=== PATIENT | female | born 1980 | race Asian ===

== ENCOUNTER 2016-12-14 12:04 | Emergency (ER) | payer OTHER ==
--- NOTE | 2016-12-14 13:03 | EDPHY ---
H & P Stated Complaint: chiropractic adjustment now with pain at neck/nausea and feels unable to f Time Seen by Provider: 12/14/16 12:39 HPI/ROS: CHIEF COMPLAINT: Neck pain lightheaded HISTORY OF PRESENT ILLNESS: This is a 36-year-old female presenting to the emergency department complaining of neck pain and lightheadedness and headache. Patient states she was seen by a chiropractor on 12/05 which was not her normal chiropractor for a neck adjustment, since then she has been complaining intermittent lightheadedness and nausea neck stiffness times 3-4 days headache with light sensitivity times 3-4 days. Patient states she was seen by her chiropractor this morning chiropractor stated he would not do an adjustment she should be seen in the emergency department, boyfriend stated at that time patient went to stand up got lightheaded and passed out while at the chiropractor's office. Patient and patient's are adamant about having a CT of her neck versus an x-ray. REVIEW OF SYSTEMS: Constitutional: No fever, no chills. Eyes: No discharge. Light sensitivity ENT: No sore throat. Cardiovascular: No chest pain, no palpitations. Respiratory: No cough, no shortness of breath. Gastrointestinal: No abdominal pain, no vomiting. Nausea Genitourinary: No hematuria. Musculoskeletal: Neck pain. Skin: No rashes. Neurological: headache. Source: Patient - Personal History LMP (Females 10-55): IUD In Place Current Tetanus/Diphtheria Vaccine: Unsure - Medical/Surgical History Hx Asthma: No Hx Chronic Respiratory Disease: No Hx Diabetes: No Hx Cardiac Disease: No Hx Renal Disease: No Hx Cirrhosis: No Hx Alcoholism: No Hx HIV/AIDS: No Hx Splenectomy or Spleen Trauma: No Other PMH: lupus/anemia. Uterine polyp. SJS - Social History Smoking Status: Never smoked - Physical Exam Exam: General Appearance: Alert, no distress. Eyes: PERRLA. no pallor or injection. ENT, Mouth: Mucous membranes moist. Respiratory: There are no retractions, lungs are clear to auscultation. Cardiovascular: Regular rate and rhythm. Gastrointestinal: Abdomen is soft and nontender, no masses, bowel sounds normal. Neurological: No focal deficits. Equal bilateral brand mgr strength ambulatory without gait disturbance Skin: Warm and dry, no rashes. Musculoskeletal: Vertebral cervical spine tenderness on palpation. No step- off noted. Extremities: symmetrical, full range of motion. Psychiatric: Patient is oriented X 3, there is no agitation. Constitutional: Initial Vital Signs Temperature (C) 36.5 C 12/14/16 12:11 Heart Rate 65 12/14/16 12:11 Respiratory Rate 22 H 12/14/16 12:11 Blood Pressure 135/87 H 12/14/16 12:11 O2 Sat (%) 99 12/14/16 12:11 O2 Delivery Mode Room Air Allergies/Adverse Reactions: codeine [Codeine] Allergy (Severe, Verified 12/14/16 12:10) Nicolás Julio Syndrome Penicillins Allergy (Unknown, Verified 12/14/16 12:10) Nicolás Julio Syndrome Home Medications: Medication Instructions Recorded Cyclobenzaprine [Flexeril 10 MG 10 mg PO TID PRN #15 tab 12/14/16 (*)] Hydrochloroquin 12/14/16 Medical Decision Making - Diagnostics Imaging Results: Imaging Impressions Neck CTA 12/14/16 13:55 Impression: 1. No acute findings 2. Additional findings as above. Stenoses are calculated using [place] Symptomatic Carotid Endarterectomy Trial (NASCET) criteria. Findings discussed with Julissa Eagle NP on 12/14/2016 at 1554 hours. ED Course/Re-evaluation: Discussed the plan of care: EKG, CBC, BMP, 1350: Discussed patient with Dr. Pereyra, the CTA of neck ordered with contrast 1600: A spoke with Dr. Mcnair--> CT head negative 1605: A discussed results with patient. Patient states headache resolving, and not in any distress, no neuro deficits. Discharge home----> stable, discussed discharge instructions Differential Diagnosis: Other differential diagnosis considered but not limited to cervical fracture, herniated disc and dissection - Data Points Laboratory Results: Laboratory Results 12/14/16 13:07 12/14/16 13:07 12/14/16 12/14/16 12/14/16 13:07 13:07 13:07 WBC 6.85 10^3/uL 10^3/uL (3.80-9.50) RBC 6.40 10^6/uL H 10^6/uL (4.18-5.33) Hgb 13.4 g/dL g/dL (12.6-16.3) Hct 42.8 % % (38.0-47.0) MCV 66.9 fL L fL (81.5-99.8) MCH 20.9 pg L pg (27.9-34.1) MCHC 31.3 g/dL L g/dL (32.4-36.7) RDW 16.2 % H % (11.5-15.2) Plt Count 412 10^3/uL H 10^3/uL (150-400) MPV 9.3 fL fL (8.7-11.7) Neut % (Auto) 62.3 % % (39.3-74.2) Lymph % (Auto) 29.2 % % (15.0-45.0) [place] % (Auto) 5.1 % % (4.5-13.0) Eos % (Auto) 2.2 % % (0.6-7.6) Baso % (Auto) 0.9 % % (0.3-1.7) Nucleat RBC Rel Count 0.0 % % (0.0-0.2) Absolute Neuts (auto) 4.27 10^3/uL 10^3/uL (1.70-6.50) Absolute Lymphs (auto) 2.00 10^3/uL 10^3/uL (1.00-3.00) Absolute Monos (auto) 0.35 10^3/uL 10^3/uL (0.30-0.80) Absolute Eos (auto) 0.15 10^3/uL 10^3/uL (0.03-0.40) Absolute Basos (auto) 0.06 10^3/uL 10^3/uL (0.02-0.10) Absolute Nucleated RBC 0.00 10^3/uL 10^3/uL (0-0.01) Immature Gran % 0.3 % % (0.0-1.1) Immature Gran # 0.02 10^3/uL 10^3/uL (0.00-0.10) Platelet Estimate INCREASED H (ADEQ) Hypochromasia 2+ H Microcytic Cells 2+ H Elliptocytes 1+ H Smear Review By Pending Sodium 143 mEq/L mEq/L (134-144) Potassium 4.1 mEq/L mEq/L (3.5-5.2) Chloride 105 mEq/L mEq/L (97-110) Carbon Dioxide 25 mEq/l mEq/l (22-31) Anion Gap 13 mEq/L mEq/L (8-16) BUN 11 mg/dL mg/dL (7-23) Creatinine 0.6 mg/dL mg/dL (0.6-1.0) Estimated GFR > 60 Glucose 89 mg/dL mg/dL (70-100) Calcium 10.2 mg/dL mg/dL (8.5-10.4) Beta HCG, Qual NEGATIVE Medications Given: Discontinued Medications Dexamethasone (Decadron Injection) 10 mg IVP EDNOW ONE Stop: 12/14/16 13:37 Last Admin: 12/14/16 13:54 Dose: 10 mg Diphenhydramine HCl (Benadryl Injection) 25 mg IVP EDNOW ONE Stop: 12/14/16 13:37 Last Admin: 12/14/16 13:54 Dose: 25 mg Ketorolac Tromethamine (Toradol) 30 mg IVP EDNOW ONE Stop: 12/14/16 13:37 Last Admin: 12/14/16 13:54 Dose: 30 mg Metoclopramide HCl (Reglan Injection) 10 mg IVP EDNOW ONE Stop: 12/14/16 13:37 Last Admin: 12/14/16 13:54 Dose: 10 mg Departure - Departure Disposition: Home, Routine, Self-Care Clinical Impression: Cervical strain, acute Qualifiers: Encounter type: initial encounter Qualified Code(s): S16.1XXA - Strain of muscle, fascia and tendon at neck level, initial encounter Condition: Good Instructions: Cervical Strain (ED), Neck Pain (ED) Additional Instructions: Discussed discharge instructions 1. Decrease any strenuous activity 2. I would refrain from going to the chiropractor for the next 4-6 weeks 3. You can use heating pad or hot tub soaks. Lidocaine patches can be beneficial and 12 hours on 12 hours off do not use a heating pad on top of the lidocaine patches this can burner skin 4. Dr. Arevalo next week Referrals: Harley Arevalo MD [Primary Care Provider] - As per Instructions Prescriptions: Cyclobenzaprine [Flexeril 10 MG (*)] 10 mg PO TID PRN #15 tab PRN Reason: Spasms
--- NOTE | 2016-12-14 13:10 | CPEKG ---
Heart Rate: 64 RR Interval: 938 P-R Interval: 204 QRSD Interval: 84 QT Interval: 392 QTC Interval: 405 P [place]: 41 QRS [place]: 68 T Wave [place]: 12 EKG Severity - ABNORMAL ECG - EKG Impression: SINUS RHYTHM EKG Impression: NONSPECIFIC T ABNORMALITIES, ANTERIOR LEADS Electronically Signed By: Anibal Pereyra 14-Dec-2016 14:35:01
[2016-12-14] MEDS ORDERED: ONDANSETRON 4 MG/2 ML VIAL ONE (13:15)
[2016-12-14 13:16] LABS: % IMMATURE GRANULYOCYTES 0.3 % (0.0-1.1); ABSOLUTE IMMATURE GRANULOCYTES 0.02 10^3/uL (0.00-0.10); ADD DIFF? NO; ADD MORPH? YES; ADD SCAN? NO; ATYPICAL LYMPHOCYTE FLAG 20 (0-99); FRAGMENT RBC FLAG 20 (0-99); HEMATOCRIT 42.8 % (38.0-47.0); HEMOGLOBIN 13.4 g/dL (12.6-16.3); LEFT SHIFT FLG 0 (0-99); LIPEMIA HEMOLYSIS FLAG 80 (0-99); MEAN CELL HEMOGLOBIN 20.9 pg (27.9-34.1); MEAN CELL HEMOGLOBIN CONCENTR. 31.3 g/dL (32.4-36.7); MEAN PLATELET VOLUME 9.3 fL (8.7-11.7); PLATELET CLUMPS FLAG 10 (0-99); PLATELET COUNT 412 10^3/uL (150-400); RED CELL DISTRIBUTION WIDTH 16.2 % (11.5-15.2)
[2016-12-14 13:34] LABS: ANION GAP 13 mEq/L (8-16); CALCIUM 10.2 mg/dL (8.5-10.4); CARBON DIOXIDE 25 mEq/l (22-31); CHLORIDE 105 mEq/L (97-110); CREATININE 0.6 mg/dL (0.6-1.0); GLOMERULAR FILTRATION RATE > 60; GLUCOSE 89 mg/dL (70-100); MEAN CELL VOLUME 66.9 fL (81.5-99.8); POTASSIUM 4.1 mEq/L (3.5-5.2); SODIUM 143 mEq/L (134-144)
[2016-12-14] MEDS ORDERED: KETOROLAC 30 MG/1 ML SDV IVP ONE (13:36)
[2016-12-14] MEDS ORDERED: METOCLOPRAMIDE 10 MG/2 ML VIAL IVP ONE (13:36)
[2016-12-14] MEDS ORDERED: DEXAMETHASONE 10 MG/ML VIAL IVP ONE (13:36)
[2016-12-14 14:03] LABS: PLATELET ESTIMATE INCREASED (ADEQ)
[2016-12-14 14:06] LABS: ELLIPTOCYTES 1+; HYPOCHROMIA 2+; MICROCYTES 2+
--- NOTE | 2016-12-14 14:08 | CPEKG ---
Heart Rate: 77 RR Interval: 779 P-R Interval: 220 QRSD Interval: 82 QT Interval: 404 QTC Interval: 458 P [place]: 59 QRS [place]: 66 T Wave [place]: 9 EKG Severity - ABNORMAL ECG - EKG Impression: SINUS RHYTHM EKG Impression: FIRST DEGREE AV BLOCK Electronically Signed By: Anibal Pereyra 14-Dec-2016 14:35:01
[2016-12-14] MEDS ORDERED: NS 1,000 ML IV ONE (15:00)
[2016-12-14] MEDS ORDERED: IOPAMIDOL (ISOVUE 370) 100 ML BTL IV ONE (15:07)
[2016-12-14] MEDS ORDERED: LIDOCAINE 5% 1 EA PATCH TD ONE (16:13)
[2016-12-14 16:18] VITALS: BP 133/84; PULSE 70; RESP 14; TEMP 98.4; O2SAT 94
[2016-12-14] MEDS ORDERED: PATCH REMOVAL 1 EA PATCH TD SCH (21:00)
[2016-12-15] MEDS ORDERED: LIDOCAINE 5% 1 EA PATCH TD SCH (09:00)
== END 2016-12-14 16:17 | disposition home or self-care (01) ==
DX: S16.1XXA Strain of muscle, fascia and tendon at neck level, initial encounter (principal); X58.XXXA Exposure to other specified factors, initial encounter
CPT/HCPCS: 96374; J1200; J1885; J2405; J2765; Q9967